=== PATIENT | male | born 1935 | race Hispanic/Latino ===

== ENCOUNTER → 2021-10-18 | Outpatient (CLI) | payer MEDICARE ==
[~2021-10-18] MED LIST: ASPI81TA40 PO; CARB-119 PO; FINA5TAB41 PO; GLIP10TA9 PO; GLIP5TAB11 PO; LISI20TA PO; METF-910 PO; PHEN100C9 PO; RANI150C4 PO; SIMV40TA59 PO; TAMS0.4C32 PO; TOLT2TAB2 PO
== END | disposition home or self-care (01) ==
LOC: RAH 12:41
PROVIDERS: ATTEND Urology
DX: N28.9 Disorder of kidney and ureter, unspecified (principal); N32.89 Other specified disorders of bladder; R31.29 Other microscopic hematuria
CPT/HCPCS: 76770